=== PATIENT | female | born 1985 | race American Indian/Alaskan Native ===

== ENCOUNTER 2017-11-19 02:11 | Emergency (ER) | payer OTHER, MEDICAID ==
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
[2017-11-19] MEDS ORDERED: MOTRIN PO ONE (14:14)
[2017-11-19 14:32] VITALS: BP 110/71
== END 2017-11-19 14:48 | disposition home or self-care (01) ==
LOC: ED 02:11
DX: M54.5 Low back pain (principal); M54.6 Pain in thoracic spine; M79.1 Myalgia; D57.3 Sickle-cell trait; V89.2XXA Person injured in unspecified motor-vehicle accident, traffic, initial encounter; Y93.89 Activity, other specified; Y92.89 Other specified places as the place of occurrence of the external cause; Y99.8 Other external cause status
CPT/HCPCS: 99283